=== PATIENT | female | born 1960 | race Caucasian/White ===

== ENCOUNTER 2022-03-09 10:44 | Outpatient (CLI) | payer BC | END 2022-03-09 10:45 | disposition home or self-care (01) | LOC: SCSRAD 10:44 | PROVIDERS: ATTEND Physician Assistant | DX: M79.644 Pain in right finger(s) (principal) ==

== ENCOUNTER 2022-07-18 10:35 | Outpatient (CLI) | payer BC | END 2022-07-18 10:36 | disposition home or self-care (01) | LOC: TBSIIMAG 10:35 | PROVIDERS: ATTEND Anesthesiology Pain Medicine | DX: M51.16 Intervertebral disc disorders with radiculopathy, lumbar region (principal); M47.26 Other spondylosis with radiculopathy, lumbar region | CPT/HCPCS: 72148 ==